=== PATIENT | female | born 1940 | race Caucasian/White ===

== ENCOUNTER 2017-03-29 01:51 | Emergency (ER) | payer MEDICARE, BC ==
[2017-03-29] MEDS ORDERED: ATARAX 25 MG PO ONE (02:06)
[2017-03-29] MEDS ORDERED: ATARAX 25 MG ONE (02:13)
[2017-03-29 02:18] LABS: BASOPHIL % 0.2 % (0.0-0.4); Eosinophil % 4.5 % (0.00-5.0); Granulocytes % 54.3 % (36.0-66.0); Lymphocytes % 30.4 % (24.0-44.0); Mean Cell Volume 88.9 fl (78-100); Mean Platelet Volume 10.3 fl (6-9.5); Monocytes % 10.6 % (0.0-12.0); Platelet Count 167 K/mm3 (150-450); Red Blood Count 3.86 M/mm3 (4.1-5.4); Red Cell Distribution Width 13.4 % (11.5-14.0); White Blood Count 6.4 K/mm3 (4.0-10.5)
--- NOTE | 2017-03-29 02:20 | ERPHSYRPT ---
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 She went to bed around 9PM. Was unable to rest well. Around 10PM she had headache and tingling in her face. Still unable to rest. No other weakness. No N/V. Her BP was elevated so she came to ER. No chest or abd pain. No hx of stroke. Timing/Duration: today Severity: mild Allergies/Adverse Reactions: cefaclor [From Ceclor] Allergy (Mild, Verified 03/29/17 02:17) Rash cephalexin monohydrate [From Keflex] Allergy (Mild, Verified 03/29/17 02:17) Rash fenoprofen calcium [From Nalfon] Allergy (Unknown, Verified 03/29/17 02:17) butorphanol tartrate [From Stadol] Adverse Reaction (Intermediate, Verified 02:17) Nausea and Vomiting hydromorphone HCl [From Dilaudid] Adverse Reaction (Intermediate, Verified 03/29 02:17) states make her very sleepy and "out of it for 3 days" Home Medications: Aspirin EC 81 mg [Ecotrin 81 mg] 81 mg PO DAILY 02/08/13 [History] Carvedilol [Coreg] 25 mg PO BID 02/08/13 [History] Losartan Potassium 100 mg PO DAILY 02/08/13 [History] Triamterene/Hydrochlorothiazid [Triamterene-Hctz 37.5-25 mg Tb] 37.5 each PO DAILY 02/08/13 [History] Multivit with Minerals/Lutein [Vision Plus Lutein Vitamin Tab] 1 ea PO DAILY [History] Dudley-3 Fatty Acids/Fish Oil [Cvs Fish Oil 1,200 mg Softgel] 1,000 mg PO DAILY 06/23/16 [History] Omeprazole Magnesium [Prilosec Otc] 20 mg PO DAILY 06/23/16 [History] Furosemide 40 mg [Lasix 40 MG] 40 mg PO DAILY 03/29/17 [History] Hydralazine HCl 10 mg PO TID 03/29/17 [History] Potassium Chloride 10 Meq Tab* [Klor Con 10 MEQ] 10 meq PO DAILY 03/29/17 [ History] Simvastatin 20Mg [Zocor 20Mg] 20 mg PO DAILY 03/29/17 [History] Hx Tetanus, Diphtheria Vaccination/Date Given: No Hx Influenza Vaccination/Date Given: Yes (2015) Hx Pneumococcal Vaccination/Date Given: Yes (2014) Immunizations Up to Date: Yes - Review of Systems Constitutional: No Fever, No Chills Eyes: No Vision Changes Ears, Nose, & Throat: No Symptoms Respiratory: No Symptoms Cardiac: No Chest Pain Abdominal/Gastrointestinal: No Abdominal Pain, No Nausea, No Vomiting Musculoskeletal: No Back Pain, No Neck Pain Skin: No Rash Neurological: Headache, Parasthesia (facial bilateral), No Focal Weakness All Other Systems: Reviewed and Negative - Past Medical History Pertinent Past Medical History: Yes Neurological History: No Pertinent History ENT History: No Pertinent History Cardiac History: Hypertension Respiratory History: Other Endocrine Medical History: Adrenal Insufficiency, Other Musculoskeletal History: Osteoarthritis GI Medical History: Polyps, Other History: Renal Disease Psycho-Social History: No Pertinent History Female Reproductive Disorders: Abnormal Uterine Bleeding Other Medical History: Growth on thyroid, at one time used a Cpap. - Past Surgical History Past Surgical History: Yes Neuro Surgical History: No Pertinent History Cardiac: Cardiac Catheterization Respiratory: No Pertinent History Gastrointestinal: Appendectomy, Cholecystectomy, Colon Resection Genitourinary: No Pertinent History Musculoskeletal: Orthopedic Surgery Female Surgical History: Hysterectomy Other Surgical History: breast biopsy-no cancer - Social History Smoking Status: Former smoker Exposure to second hand smoke: No Drug Use: none Patient Lives Alone: No - Nursing Vital Signs Nursing Vital Signs: Initial Vital Signs Pulse Rate 61 03/29/17 02:08 Respiratory Rate 18 03/29/17 02:08 Blood Pressure 162/69 03/29/17 02:08 O2 Sat by Pulse Oximetry 97 03/29/17 02:08 Pain Scale Pain Intensity 1 - Physical Exam General Appearance: alert Eye Exam: PERRL/EOMI Ears, Nose, Throat Exam: normal ENT inspection, moist mucous membranes Neck Exam: normal inspection, non-tender, supple Respiratory Exam: normal breath sounds, lungs clear Cardiovascular Exam: regular rate/rhythm Gastrointestinal/Abdomen Exam: soft, No tenderness, No distention Back Exam: normal inspection, normal range of motion Extremity Exam: normal inspection, normal range of motion Neurologic Exam: alert, oriented x 3, cooperative, 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 as tested (no facial droop), sensation nml, No motor deficits Skin Exam: warm, dry, No rash SpO2 Interpretation: normal SpO2: 97 Oxygen Delivery: Room Air - Course Nursing assessment & vital signs reviewed: Yes EKG Interpreted by Me: RATE (60), Sinus Rhythm, NORMAL AXIS, NORMAL INTERVALS ( QTc 416), NORMAL QRS (poor R wave progression), NORMAL ST-T - Radiology Exams cxr X-ray Interpretation: Reviewed by me, Negative - CT Exams brain CT Interpretation: Negative, Tele-radiologist Report Ordered Tests: Active Orders 24 hr Category Date Time Status Dice Maker STAT Care 03/29/17 02:03 Active EKG-ER Only STAT Care 03/29/17 02:03 Active IV Insertion STAT Care 03/29/17 02:03 Active NPO (ED) STAT Care 03/29/17 02:03 Active Pulse Oximetry (ED) STAT Care 03/29/17 02:03 Active CHEST 1 VIEW (PORTABLE) Stat Exams 03/29/17 02:03 Taken HEAD WITHOUT CONTRAST [CT] Stat Exams 03/29/17 02:03 Taken CBC W DIFF Stat Lab 03/29/17 02:05 Completed CMP Stat Lab 03/29/17 02:05 Completed PROTIME WITH INR Stat Lab 03/29/17 02:05 Completed PTT Stat Lab 03/29/17 02:05 Completed Medication Summary Discontinued Medications Generic Name Dose Route Start Last Admin Trade Name Freq PRN Reason Stop Dose Admin Hydroxyzine HCl 25 mg 03/29/17 02:06 03/29/17 02:17 Atarax 25 Mg PO 03/29/17 02:07 25 mg STAT ONE Administration Hydroxyzine HCl Confirm 03/29/17 02:13 Atarax 25 Mg Administered 03/29/17 02:14 Dose 25 mg .ROUTE .STneoSurgical-FanGo ONE Lab/Rad Data: Laboratory Result Diagrams 03/29/17 02:05 03/29/17 02:05 Laboratory Results 03/29/17 03/29/17 03/29/17 Range/Units 02:05 02:05 02:05 WBC 6.4 (4.0-10.5) K/mm3 RBC 3.86 L (4.1-5.4) M/mm3 Hgb 11.3 L (12.0-16.0) gm/dl Hct 34.3 L (35-47) % MCV 88.9 (78-100) fl MCH 29.2 (26-32) pg MCHC 32.9 (32-36) g/dl RDW 13.4 (11.5-14.0) % Plt Count 167 (150-450) K/mm3 MPV 10.3 H (6-9.5) fl Gran % 54.3 (36.0-66.0) % Lymphocytes % 30.4 (24.0-44.0) % Monocytes % 10.6 (0.0-12.0) % Eosinophils % 4.5 (0.00-5.0) % Basophils % 0.2 (0.0-0.4) % Basophils # 0.01 (0-0.4) INR 1.00 (0.8-3.0) APTT 29.9 (25.3-37.0) SECONDS Sodium 135 L (136-145) mEq/L Potassium 4.0 (3.5-5.1) mEq/L Chloride 98 (98-107) mEq/L Carbon Dioxide 28.1 (21-32) mEq/L Anion Gap 12.8 (5-15) MEQ/L BUN 19 (9-20) mg/dL Creatinine 1.76 H (0.55-1.30) mg/dl Estimated GFR 30 ML/MIN Glucose 112 H (70-110) MG/DL Calcium 9.4 (8.5-10.1) mg/dL Total Bilirubin 0.70 (0.2-1.0) mg/dL AST 21 (15-37) U/L ALT 22 (12-78) U/L Alkaline Phosphatase 75 (46-116) U/L Serum Total Protein 6.9 (6.4-8.2) gm/dL Albumin 3.7 (3.4-5.0) g/dL - Progress Progress Note: 09/18/17 03:45 BP 153/78. Symptoms better. Still some headache which she reports is not unusual. She sees Dr Love/Harini/Joshua. NIH negative. Normal swallow eval. Will release to follow up with dr Love. Counseled pt/family regarding: lab results, diagnosis, need for follow-up, rad results - Departure Time of Disposition: 03:46 Departure Disposition: Home Clinical Impression: High blood pressure, Headache Condition: Stable Critical Care Time: No Referrals: VICENTE LOVE MD [Primary Care Provider] - Instructions: Numbness/tingling, High Blood Pressure Additional Instructions: No driving and stay with family. Return for problems or concerns. Take your normal medications. Call Dr Love tomorrow for recheck.
[2017-03-29 02:28] LABS: Mean Corpuscular Hemoglobin 29.2 pg (26-32)
[2017-03-29 02:29] LABS: PROTIME 11.1 SECONDS (9.95-12.35)
[2017-03-29 02:32] LABS: PTT 29.9 SECONDS (25.3-37.0)
[2017-03-29 02:38] LABS: ALBUMIN 3.7 g/dL (3.4-5.0); ANION GAP 12.8 MEQ/L (5-15); BILIRUBIN,TOTAL 0.7 mg/dL (0.2-1.0); Carbon Dioxide 28.1 mEq/L (21-32); Total Protein 6.9 gm/dL (6.4-8.2)
[2017-03-29] MEDS ORDERED: TYLENOL 325 MG PO ONE (03:47)
[2017-03-29] MEDS ORDERED: TYLENOL 325 MG ONE (03:53)
[2017-03-29 04:00] VITALS: BP 141/64; PULSE 70; O2SAT 95
--- NOTE | 2017-03-29 08:54 | XRAY ---
Indication: Headache and bilateral facial tingling. Multiple contiguous axial images obtained through the head without contrast. Comparison: None. Normal appearing brain parenchyma, ventricles, and bony calvarium. Visualized paranasal sinuses and mastoid air cells are clear. Impression: Normal CT head without contrast exam. Comment: Preliminary interpretation was made by [facility]. No discrepancy. CT DI 68.51
--- NOTE | 2017-03-29 08:54 | XRAY ---
Indication: Headache and bilateral facial tingling. Comparison: November 18, 2014. Portable chest again demonstrates lingular atelectasis/scarring and a few scattered calcified granulomas. Remaining lungs clear. Heart is not enlarged. Bony thorax intact again with mild osteopenia and degenerative changes. Impression: Stable nonacute chest with chronic features.
== END 2017-03-29 03:59 | disposition home or self-care (01) ==
LOC: ED 01:51
DX: I10 Essential (primary) hypertension (principal); R51 Headache; Z79.899 Other long term (current) drug therapy
CPT/HCPCS: 36000; 36415; 70450; 71010; 80053; 85025; 85610; 85730; 93005; 93041; 99284; 99285; A9270-GY

== ENCOUNTER 2017-04-04 14:54 | Emergency (ER) | payer MEDICARE, BC ==
[2017-04-04] MEDS ORDERED: Sodium Chloride 0.9% 1000 ML 1,000 ML IV STA (15:43)
[2017-04-04] MEDS ORDERED: Sodium Chloride 0.9% 1000 ML 1,000 ML ONE (15:54)
[2017-04-04 15:58] LABS: ALBUMIN 3.7 g/dL (3.4-5.0); ANION GAP 10.7 MEQ/L (5-15); BILIRUBIN,TOTAL 0.5 mg/dL (0.2-1.0); Carbon Dioxide 30.8 mEq/L (21-32); MAGNESIUM 1.4 mg/dL (1.8-2.4); Potassium 4.1 mEq/L (3.5-5.1); Total Protein 6.9 gm/dL (6.4-8.2)
[2017-04-04 16:04] LABS: BASOPHIL % 0.1 % (0.0-0.4); Eosinophil % 4.8 % (0.00-5.0); Granulocytes % 61.1 % (36.0-66.0); Lymphocytes % 23.9 % (24.0-44.0); Mean Cell Volume 86.5 fl (78-100); Mean Corpuscular Hemoglobin 29.5 pg (26-32); Mean Platelet Volume 9.8 fl (6-9.5); Monocytes % 10.1 % (0.0-12.0); Platelet Count 176 K/mm3 (150-450); Red Cell Distribution Width 13.2 % (11.5-14.0); White Blood Count 6.7 K/mm3 (4.0-10.5)
--- NOTE | 2017-04-04 16:35 | ERPHSYRPT ---
- History of Present Illness Time Seen by Provider: 04/04/17 16:29 Source: patient, family Patient Subjective Stated Complaint: Pt states "I was here on wednesday and they let me go saying everything was ok. I am feeling funny and weak. I am not sure why I feel weak. They have been playing around with my blood pressure meds and my water pills so that might have something to do with it." Triage Nursing Assessment: PT alert and oriented X 3, skin pwd. 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 Physician History: Pt states "I was here on wednesday and they let me go saying everything was ok. I am feeling funny and weak. I am not sure why I feel weak. They have been playing around with my blood pressure meds and my water pills so that might have something to do with it." Timing/Duration: week(s) Associated Symptoms: weakness Allergies/Adverse Reactions: cefaclor [From Ceclor] Allergy (Mild, Verified 03/29/17 02:17) Rash cephalexin monohydrate [From Keflex] Allergy (Mild, Verified 03/29/17 02:17) Rash fenoprofen calcium [From Nalfon] Allergy (Unknown, Verified 03/29/17 02:17) butorphanol tartrate [From Stadol] Adverse Reaction (Intermediate, Verified 02:17) Nausea and Vomiting hydromorphone HCl [From Dilaudid] Adverse Reaction (Intermediate, Verified 03/29 02:17) states make her very sleepy and "out of it for 3 days" Home Medications: Aspirin EC 81 mg [Ecotrin 81 mg] 81 mg PO DAILY 02/08/13 [History] Carvedilol [Coreg] 25 mg PO BID 02/08/13 [History] Losartan Potassium 100 mg PO DAILY 02/08/13 [History] Triamterene/Hydrochlorothiazid [Triamterene-Hctz 37.5-25 mg Tb] 37.5 each PO DAILY 02/08/13 [History] Multivit with Minerals/Lutein [Vision Plus Lutein Vitamin Tab] 1 ea PO DAILY [History] Kramer-3 Fatty Acids/Fish Oil [Cvs Fish Oil 1,200 mg Softgel] 1,000 mg PO DAILY 06/23/16 [History] Omeprazole Magnesium [Prilosec Otc] 20 mg PO DAILY 06/23/16 [History] Furosemide 40 mg [Lasix 40 MG] 40 mg PO DAILY 03/29/17 [History] Hydralazine HCl 10 mg PO TID 03/29/17 [History] Potassium Chloride 10 Meq Tab* [Klor Con 10 MEQ] 10 meq PO DAILY 03/29/17 [ History] Simvastatin 20Mg [Zocor 20Mg] 20 mg PO DAILY 03/29/17 [History] Hx Tetanus, Diphtheria Vaccination/Date Given: Yes Hx Influenza Vaccination/Date Given: Yes Hx Pneumococcal Vaccination/Date Given: Yes Immunizations Up to Date: Yes - Review of Systems Constitutional: Weakness, No Fever, No Chills Eyes: No Symptoms Ears, Nose, & Throat: No Symptoms Respiratory: No Cough, No Dyspnea Cardiac: No Chest Pain, No Edema, No Syncope Abdominal/Gastrointestinal: No Abdominal Pain, No Nausea, No Vomiting, No Diarrhea Genitourinary Symptoms: No Dysuria Musculoskeletal: No Back Pain, No Neck Pain Skin: No Rash Neurological: No Dizziness, No Focal Weakness, No Sensory Changes Psychological: No Symptoms Endocrine: No Symptoms All Other Systems: Reviewed and Negative - Past Medical History Pertinent Past Medical History: Yes Neurological History: No Pertinent History ENT History: No Pertinent History Cardiac History: Hypertension Respiratory History: Other Endocrine Medical History: Adrenal Insufficiency, Other Musculoskeletal History: Osteoarthritis GI Medical History: Polyps, Other History: Renal Disease Psycho-Social History: No Pertinent History Female Reproductive Disorders: Abnormal Uterine Bleeding Other Medical History: Growth on thyroid, at one time used a Cpap. - Past Surgical History Past Surgical History: Yes Neuro Surgical History: No Pertinent History Cardiac: Cardiac Catheterization Respiratory: No Pertinent History Gastrointestinal: Appendectomy, Cholecystectomy, Colon Resection Genitourinary: No Pertinent History Musculoskeletal: Orthopedic Surgery Female Surgical History: Hysterectomy Other Surgical History: breast biopsy-no cancer - Social History Smoking Status: Former smoker Exposure to second hand smoke: No Drug Use: none Patient Lives Alone: No - Female History Hx Last Menstrual Period: no more - Nursing Vital Signs Nursing Vital Signs: Initial Vital Signs Temperature 97.6 F 04/04/17 14:55 Pulse Rate 68 04/04/17 14:55 Respiratory Rate 18 04/04/17 14:55 Blood Pressure 176/78 04/04/17 14:55 O2 Sat by Pulse Oximetry 95 04/04/17 14:55 Pain Scale Pain Intensity 0 - Physical Exam General Appearance: no apparent distress, alert Eye Exam: PERRL/EOMI, eyes nml inspection Ears, Nose, Throat Exam: normal ENT inspection, TMs normal, pharynx normal, moist mucous membranes Neck Exam: normal inspection, non-tender, supple, full range of motion Respiratory Exam: normal breath sounds, lungs clear, No respiratory distress Cardiovascular Exam: regular rate/rhythm, normal heart sounds, normal peripheral pulses Gastrointestinal/Abdomen Exam: soft, normal bowel sounds, No tenderness, No mass Back Exam: normal inspection, normal range of motion, No CVA tenderness, No vertebral tenderness Extremity Exam: normal inspection, normal range of motion, pelvis stable Neurologic Exam: alert, oriented x 3, cooperative, normal mood/affect, nml cerebellar function, nml station & gait, sensation nml, No motor deficits Skin Exam: normal color, warm, dry, No rash Lymphatic Exam: No adenopathy SpO2: 95 Oxygen Delivery: Room Air - Course Nursing assessment & vital signs reviewed: Yes Ordered Tests: Active Orders 24 hr Category Date Time Status CBC W DIFF Stat Lab 04/04/17 15:00 Completed CMP Stat Lab 04/04/17 15:00 Completed MAGNESIUM Stat Lab 04/04/17 15:00 Completed TROPONIN Stat Lab 04/04/17 15:00 Completed Medication Summary Generic Name Dose Route Start Last Admin Trade Name Freq PRN Reason Stop Dose Admin Sodium Chloride 1,000 mls @ 999 mls/hr 04/04/17 15:43 04/04/17 15:55 Sodium Chloride 0.9% 1000 Ml IV 04/04/17 16:43 999 mls/hr .[id number] STA Administration Discontinued Medications Generic Name Dose Route Start Last Admin Trade Name Freq PRN Reason Stop Dose Admin Sodium Chloride Confirm 04/04/17 15:54 Sodium Chloride 0.9% 1000 Ml Administered 04/04/17 15:55 Dose 1,000 mls @ ud .ROUTE .STK-MED ONE Lab/Rad Data: Laboratory Result Diagrams 04/04/17 15:00 04/04/17 15:00 Laboratory Results 04/04/17 04/04/17 04/04/17 Range/Units 15:00 15:00 15:00 WBC 6.7 (4.0-10.5) K/mm3 RBC 4.00 L (4.1-5.4) M/mm3 Hgb 11.8 L (12.0-16.0) gm/dl Hct 34.6 L (35-47) % MCV 86.5 (78-100) fl MCH 29.5 (26-32) pg MCHC 34.1 (32-36) g/dl RDW 13.2 (11.5-14.0) % Plt Count 176 (150-450) K/mm3 MPV 9.8 H (6-9.5) fl Gran % 61.1 (36.0-66.0) % Lymphocytes % 23.9 L (24.0-44.0) % Monocytes % 10.1 (0.0-12.0) % Eosinophils % 4.8 (0.00-5.0) % Basophils % 0.1 (0.0-0.4) % Basophils # 0.01 (0-0.4) Sodium 133 L (136-145) mEq/L Potassium 4.1 (3.5-5.1) mEq/L Chloride 96 L (98-107) mEq/L Carbon Dioxide 30.8 (21-32) mEq/L Anion Gap 10.7 (5-15) MEQ/L BUN 24 H (9-20) mg/dL Creatinine 1.83 H (0.55-1.30) mg/dl Estimated GFR 28 ML/MIN Glucose 123 H (70-110) MG/DL Calcium 9.8 (8.5-10.1) mg/dL Magnesium 1.4 L (1.8-2.4) mg/dL Total Bilirubin 0.50 (0.2-1.0) mg/dL AST 25 (15-37) U/L ALT 29 (12-78) U/L Alkaline Phosphatase 79 (46-116) U/L Troponin I < 0.017 (0.000-0.056) ng/ml Serum Total Protein 6.9 (6.4-8.2) gm/dL Albumin 3.7 (3.4-5.0) g/dL - Progress Progress: improved Counseled pt/family regarding: lab results, diagnosis, need for follow-up - Departure Time of Disposition: 16:34 Departure Disposition: Home Clinical Impression: Weakness generalized, Chronic kidney disease (CKD) stage G4/A1, severely decreased glomerular filtration rate (GFR) between 15-29 mL/min/1.73 square meter and albuminuria creatinine ratio less than 30 mg/g Condition: Stable Critical Care Time: Yes Critical Care Time(excluding separately billable procedures): 30-74 minutes Referrals: VICENTE LOVE MD [Primary Care Provider] - Additional Instructions: Ms. Becker. Your symptoms are originating from due to changing some of your heart and kidney medications, although you do require those medications, so please talk to your linux server engineer and technical adjuster for further adjustment in your medication. What you are feeling of the side effects of those medications. Please do not stop any of those medication before talking to your linux server engineer and technical adjuster. Make an appointment with your technical adjuster in next 2-3 days.
[2017-04-04] MEDS ORDERED: MAG-OX 400 ONE (16:38)
[2017-04-04 16:46] VITALS: BP 121/60; PULSE 68; O2SAT 97
[2017-04-05] MEDS ORDERED: MAG-OX 400 PO ONE (16:36)
== END 2017-04-04 16:56 | disposition home or self-care (01) ==
LOC: ED 14:54
DX: R53.1 Weakness (principal); N18.4 Chronic kidney disease, stage 4 (severe); R94.4 Abnormal results of kidney function studies; R80.9 Proteinuria, unspecified; Z79.899 Other long term (current) drug therapy; I10 Essential (primary) hypertension
CPT/HCPCS: 36415; 80053; 83735; 84484; 85025; 96360; 99284; A9270-GY

== ENCOUNTER 2017-08-05 05:47 | Day surgery (SDC) | payer MEDICARE, BC ==
[2017-08-05] MEDS ORDERED: DIPRIVAN 200 MG/20 ML IV ONE (05:48)
[2017-08-05] MEDS ORDERED: Ketamine HCl 50 MG/ML IV ONE (05:48)
[2017-08-05] MEDS ORDERED: Lactated Ringers 1,000 ML IV SCH (06:30)
--- NOTE | 2017-08-05 08:50 | OP ---
SURGERY DATE/TIME: 08/05/2017 0800 PREOPERATIVE DIAGNOSES: 1) Persistent gastroesophageal reflux disease 2) Dysphagia. POSTOPERATIVE DIAGNOSIS: Normal exam. PROCEDURE: EGD. SURGEON: Ha Monterroso M.D. ANESTHESIA: MAC by Xavier Da Silva CRNA. ESTIMATED BLOOD LOSS: None. SPECIMENS: None. DESCRIPTION OF PROCEDURE: After informed written consent was obtained, the patient was taken to the endoscopy suite. She underwent monitored anesthesia and a bite block was inserted. The endoscope was inserted into the posterior oropharynx and under direct visualization the esophagus was easily traversed. The esophageal mucosa had no obvious mucosal abnormalities. The gastroesophageal junction appeared normal upon entering the stomach. There was normal rugated gastric mucosa free of lesions or defects. The pylorus was traversed and the first and second portions of the duodenum had a normal mucosal appearance. Upon withdrawal all mucosal structures had no obvious abnormalities or concerning lesions. The scope was removed and the patient was transferred to the recovery room in good condition.
[2017-08-05 09:08] VITALS: O2SAT 98
[2017-08-05 09:46] VITALS: BP 141/68; PULSE 62
== END 2017-08-05 09:25 | disposition home or self-care (01) ==
LOC: SDC 05:47
PROVIDERS: ATTEND Family Medicine
PROC: 0DJ08ZZ Inspection of Upper Intestinal Tract, Via Natural or Artificial Opening Endoscopic (ICD-10-PCS; principal; 2017-08-05)
DX: K21.9 Gastro-esophageal reflux disease without esophagitis (principal); R13.10 Dysphagia, unspecified
CPT/HCPCS: 00731; 99100; J2704

== ENCOUNTER 2019-05-16 13:36 | Emergency (ER) | payer MEDICARE, BC ==
--- NOTE | 2019-05-16 13:41 | ERPHSYRPT ---
- History of Present Illness Time Seen by Provider: 05/16/19 13:40 Historian: patient Exam Limitations: no limitations Physician History: 78 y/o white female with h/o chf, afib, htn, chronic kidney dz and copd at home receiving physical therapy when she suddenly began having nonradiating, mild central substernal chest pressure and fluttering. pt does have retirement manager, dr. schuler. pt denies mi in the past. pt does not have soa and denies abd pain. Timing/Duration: today, sudden Quality: pressure, other (fluttering) Location: substernal, central Chest Pain Radiation: no radiation Severity of Pain-Max: mild Severity of Pain-Current: mild Associated Symptoms: palpitations Prior Chest Pain/Cardiac Workup: no prior chest pain, cardiac cath (in past) Aspirin Treatment Today: 81 mg x 1, provided at home Allergies/Adverse Reactions: cefaclor [From Ceclor] Allergy (Mild, Verified 05/16/19 13:56) Rash cephalexin monohydrate [From Keflex] Allergy (Mild, Verified 05/16/19 13:56) Rash fenoprofen calcium [From Nalfon] Allergy (Unknown, Verified 05/16/19 13:56) butorphanol tartrate [From Stadol] Adverse Reaction (Intermediate, Verified 11/27 13:56) Nausea and Vomiting hydromorphone HCl [From Dilaudid] Adverse Reaction (Intermediate, Verified 05/16 13:56) states make her very sleepy and "out of it for 3 days" Home Medications: Aspirin EC 81 mg [Ecotrin 81 mg] 81 mg PO DAILY 02/08/13 [History] Carvedilol [Coreg] 25 mg PO BID 02/08/13 [History] Losartan Potassium 100 mg PO DAILY 02/08/13 [History] Beaman-3 Fatty Acids/Fish Oil [[facility]vs Fish Oil 1,200 mg Softgel] 1,000 mg PO BID [History] Omeprazole Magnesium [Prilosec Otc] 40 mg PO DAILY 06/23/16 [History] Furosemide 40 mg [Lasix 40 MG] 40 mg PO DAILY 03/29/17 [History] Hydralazine HCl 50 mg PO TID 03/29/17 [History] Potassium Chloride 10 Meq Tab* [Klor Con 10 MEQ] 10 meq PO BID 03/29/17 [ History] Simvastatin 20Mg [Zocor 20Mg] 20 mg PO DAILY 03/29/17 [History] Multivitamin with Minerals [One Daily Complete] 1 tab PO DAILY 07/27/17 [History ] Famotidine 20 mg PO DAILY 05/16/19 [History] Indapamide 1.25 mg PO DAILY 05/16/19 [History] Oxycodone HCl/Acetaminophen [Percocet 5-325 mg Tablet] 1 tab PO DAILY PRN [History] Sertraline HCl [Zoloft] 25 mg PO DAILY 05/16/19 [History] Hx Tetanus, Diphtheria Vaccination/Date Given: Yes Hx Influenza Vaccination/Date Given: Yes Hx Pneumococcal Vaccination/Date Given: Yes - Review of Systems Constitutional: No Symptoms Eyes: No Symptoms Ears, Nose, & Throat: No Symptoms Respiratory: No Symptoms Cardiac: Chest Pain, Palpitations Abdominal/Gastrointestinal: No Symptoms Genitourinary Symptoms: No Symptoms Musculoskeletal: No Symptoms Skin: No Symptoms Neurological: No Symptoms Psychological: No Symptoms Endocrine: No Symptoms Hematologic/Lymphatic: No Symptoms Immunological/Allergic: No Symptoms All Other Systems: Reviewed and Negative - Past Medical History Pertinent Past Medical History: Yes Neurological History: No Pertinent History ENT History: No Pertinent History, Cataracts Cardiac History: Congestive Heart Failure, High Cholesterol, Hypertension Respiratory History: COPD, Other Endocrine Medical History: Other Musculoskeletal History: Arthritis, Osteoarthritis GI Medical History: GERD, Polyps, Other History: Renal Disease Psycho-Social History: No Pertinent History Female Reproductive Disorders: Abnormal Uterine Bleeding Other Medical History: Growth on thyroid, at one time used a Cpap, hx sleep apnea, history of hysterectomy for abnormal uterine bleeding years ago, - Past Surgical History Past Surgical History: Yes Neuro Surgical History: No Pertinent History Cardiac: Cardiac Catheterization Respiratory: No Pertinent History Gastrointestinal: Appendectomy, Cholecystectomy, Colon Resection Genitourinary: No Pertinent History Musculoskeletal: Joint Replacement, Orthopedic Surgery Female Surgical History: Hysterectomy, Other Other Surgical History: right total knee replacement, lower back surgery, left elbow surgery, colon resection-no cancer. breast biopsy-no cancer, egd - Social History Smoking Status: Former smoker Exposure to second hand smoke: No Drug Use: none Patient Lives Alone: No - Nursing Vital Signs Nursing Vital Signs: Initial Vital Signs Temperature 98.0 F 05/16/19 13:37 Pulse Rate 109 H 05/16/19 13:37 Respiratory Rate 10 L 05/16/19 13:37 Blood Pressure 185/70 05/16/19 13:37 O2 Sat by Pulse Oximetry 98 05/16/19 13:37 Pain Scale Pain Intensity 4 - Physical Exam General Appearance: mild distress, alert, anxiety Eye Exam: PERRL/EOMI, eyes nml inspection Ears, Nose, Throat Exam: normal ENT inspection, moist mucous membranes Neck Exam: normal inspection, non-tender, supple, full range of motion Respiratory Exam: normal breath sounds, chest tenderness, lungs clear, airway intact, No respiratory distress Cardiovascular Exam: tachycardia, irregular Gastrointestinal/Abdomen Exam: soft, normal bowel sounds, No tenderness Pelvic Exam: not done Rectal Exam: not done Back Exam: normal inspection, normal range of motion, No CVA tenderness, No vertebral tenderness Extremity Exam: normal inspection, normal range of motion, pelvis stable Neurologic Exam: alert, oriented x 3, cooperative, normal mood/affect, nml cerebellar function, nml station & gait Skin Exam: normal color, warm, dry Lymphatic Exam: No adenopathy O2 Delivery: Room Air - Course Nursing assessment & vital signs reviewed: Yes EKG Interpreted by Me: RATE (108), A-fib, NORMAL AXIS, NORMAL INTERVALS, Other ( new onset afib/flutter when comparing to ekg dated 03/29/17) Ordered Tests: Active Orders 24 hr Category Date Time Status Sterilization Specialist STAT Care 05/16/19 13:54 Active EKG-ER Only STAT Care 05/16/19 13:53 Active IV Insertion STAT Care 05/16/19 13:53 Active Pulse Oximetry (ED) STAT Care 05/16/19 13:53 Active CHEST 1 VIEW (PORTABLE) Stat Exams 05/16/19 13:54 Completed CBC W DIFF Stat Lab 05/16/19 14:00 Completed CMP Stat Lab 05/16/19 14:00 Completed NT PRO BNP Stat Lab 05/16/19 14:00 Completed TROPONIN Q3H Lab 05/16/19 14:00 Completed TROPONIN Q3H Lab 05/16/19 17:02 Completed TROPONIN Q3H Lab 05/16/19 20:00 Ordered TROPONIN Q3H Lab 05/16/19 23:00 Ordered TROPONIN Q3H Lab 05/17/19 02:00 Ordered Medication Summary Discontinued Medications Generic Name Dose Route Start Last Admin Trade Name Hussein PRLeslie Reason Stop Dose Admin Aspirin 324 mg 05/16/19 13:53 05/16/19 14:08 Baby Aspirin 81 Mg Chew PO 05/16/19 13:54 324 mg STAT ONE Administration Aspirin Confirm 05/16/19 14:07 Baby Aspirin 81 Mg Chew Administered 05/16/19 14:08 Dose 324 mg .ROUTE .STK-MED ONE Metoprolol Tartrate 5 mg 05/16/19 13:55 05/16/19 14:07 Lopressor 5 Mg/5 Ml Injection IV 05/16/19 13:56 5 mg STAT ONE Administration Metoprolol Tartrate Confirm 05/16/19 14:07 Lopressor 5 Mg/5 Ml Injection Administered 05/16/19 14:08 Dose 5 mg IV .STK-MED ONE Metoprolol Tartrate 5 mg 05/16/19 16:52 05/16/19 16:56 Lopressor 5 Mg/5 Ml Injection IV 05/16/19 16:53 5 mg STAT ONE Administration Metoprolol Tartrate Confirm 05/16/19 16:55 Lopressor 5 Mg/5 Ml Injection Administered 05/16/19 16:56 Dose 5 mg IV .STK-MED ONE Morphine Sulfate 2 mg 05/16/19 17:25 05/16/19 17:30 Morphine Sulfate 2 Mg Inj IV 05/16/19 17:26 2 mg STAT ONE Administration Morphine Sulfate Confirm 05/16/19 17:27 Morphine Sulfate 2 Mg Inj Administered 05/16/19 17:28 Dose 2 mg .ROUTE .STK-MED ONE Lab/Rad Data: Laboratory Result Diagrams 05/16/19 14:00 05/16/19 14:00 Laboratory Results 05/16/19 05/16/19 05/16/19 Range/Units 17:02 14:00 14:00 WBC (4.0-10.5) K/mm3 RBC (4.1-5.4) M/mm3 Hgb (12.0-16.0) gm/dl Hct (35-47) % MCV (78-100) fl MCH (26-32) pg MCHC (32-36) g/dl RDW (11.5-14.0) % Plt Count (150-450) K/mm3 MPV (6-9.5) fl Gran % (36.0-66.0) % Eos # (Auto) (0-0.5) Absolute Lymphs (auto) (1.0-4.6) Absolute Monos (auto) (0.0-1.3) Lymphocytes % (24.0-44.0) % Monocytes % (0.0-12.0) % Eosinophils % (0.00-5.0) % Basophils % (0.0-0.4) % Absolute Granulocytes (1.4-6.9) Basophils # (0-0.4) Sodium 140 (137-145) mmol/L Potassium 3.8 (3.5-5.1) mmol/L Chloride 96 L (98-107) mmol/L Carbon Dioxide 34 H (22-30) mmol/L Anion Gap 13.2 (5-15) MEQ/L BUN 27 H (7-17) mg/dL Creatinine 2.08 H (0.52-1.04) mg/dL Estimated GFR 24.4 ML/MIN Glucose 108 H (74-106) mg/dL Calcium 10.1 (8.4-10.2) mg/dL Total Bilirubin 0.50 (0.2-1.3) mg/dL AST 27 (14-36) U/L ALT 19 (0-35) U/L Alkaline Phosphatase 62 (38-126) U/L Troponin I < 0.012 < 0.012 (0.000-0.034) ng/mL NT-Pro-B Natriuret Pep 365 (0-1800) pg/mL Serum Total Protein 7.5 (6.3-8.2) g/dL Albumin 4.2 (3.5-5.0) g/dL 05/16/19 Range/Units 14:00 WBC 7.9 (4.0-10.5) K/mm3 RBC 3.63 L (4.1-5.4) M/mm3 Hgb 11.0 L (12.0-16.0) gm/dl Hct 33.9 L (35-47) % MCV 93.4 (78-100) fl MCH 30.3 (26-32) pg MCHC 32.4 (32-36) g/dl RDW 14.3 H (11.5-14.0) % Plt Count 165 (150-450) K/mm3 MPV 10.3 H (6-9.5) fl Gran % 55.0 (36.0-66.0) % Eos # (Auto) 0.31 (0-0.5) Absolute Lymphs (auto) 2.44 (1.0-4.6) Absolute Monos (auto) 0.81 (0.0-1.3) Lymphocytes % 30.8 (24.0-44.0) % Monocytes % 10.2 (0.0-12.0) % Eosinophils % 3.9 (0.00-5.0) % Basophils % 0.1 (0.0-0.4) % Absolute Granulocytes 4.34 (1.4-6.9) Basophils # 0.01 (0-0.4) Sodium (137-145) mmol/L Potassium (3.5-5.1) mmol/L Chloride (98-107) mmol/L Carbon Dioxide (22-30) mmol/L Anion Gap (5-15) MEQ/L BUN (7-17) mg/dL Creatinine (0.52-1.04) mg/dL Estimated GFR ML/MIN Glucose (74-106) mg/dL Calcium (8.4-10.2) mg/dL Total Bilirubin (0.2-1.3) mg/dL AST (14-36) U/L ALT (0-35) U/L Alkaline Phosphatase (38-126) U/L Troponin I (0.000-0.034) ng/mL NT-Pro-B Natriuret Pep (0-1800) pg/mL Serum Total Protein (6.3-8.2) g/dL Albumin (3.5-5.0) g/dL - Progress Progress: improved Air Movement: good Progress Note: 05/16/19 18:25 cxr-no acute process. pt with persistent cp. spoke with dr. Schuler, pts retirement manager. he agrees pt should be transferred. the operations trainer retirement manager for the group will admit. pt [facility] transfer to [facility]. transfer center there was called, pt meets automatic acceptance protocol. they accept pt for transfer. Blood Culture(s) Obtained: No Antibiotics given: No Discussed with : Other (alverto) Counseled pt/family regarding: lab results, diagnosis, rad results - Departure Departure Disposition: Transfer Clinical Impression: Chest pain, Atrial fibrillation and flutter Condition: Stable Critical Care Time: Yes Critical Care Time(excluding separately billable procedures): Critical 30-74 mins Referrals: VICENTE LOVE MD [Primary Care Provider] -
[2019-05-16] MEDS ORDERED: LOPRESSOR 5 MG/5 ML INJECTION IV ONE ×2 (14:07→16:55)
[2019-05-16] MEDS: LOPRESSOR 5 MG/5 ML INJECTION IV ONE ×2 (14:07→16:56)
[2019-05-16] MEDS ORDERED: BABY ASPIRIN 81 MG CHEW ONE (14:07)
[2019-05-16] MEDS: BABY ASPIRIN 81 MG CHEW PO ONE (14:08)
[2019-05-16 14:11] LABS: Absolute Neutrophil Ct (ANC) 4.34 (1.4-6.9); BASOPHIL % 0.1 % (0.0-0.4); Basophil (Absolute #) 0.01 (0-0.4); Eosinophil % 3.9 % (0.00-5.0); Eosinophil (Absolute #) 0.31 (0-0.5); Hematocrit 33.9 % (35-47); Lymphocyte (Absolute #) 2.44 (1.0-4.6); Lymphocytes % 30.8 % (24.0-44.0); Mean Cell Volume 93.4 fl (78-100); Mean Corpuscular Hemoglobin 30.3 pg (26-32); Mean Corpuscular Hgb Concent. 32.4 g/dl (32-36); Mean Platelet Volume 10.3 fl (6-9.5); Monocyte (Absolute #) 0.81 (0.0-1.3); Monocytes % 10.2 % (0.0-12.0); Platelet Count 165 K/mm3 (150-450); Red Blood Count 3.63 M/mm3 (4.1-5.4); Red Cell Distribution Width 14.3 % (11.5-14.0); White Blood Count 7.9 K/mm3 (4.0-10.5)
[2019-05-16 14:30] LABS: ALBUMIN 4.2 g/dL (3.5-5.0); ANION GAP 13.2 MEQ/L (5-15); BILIRUBIN,TOTAL 0.5 mg/dL (0.2-1.3); Calcium 10.1 mg/dL (8.4-10.2); Creatinine 1 2.08 mg/dL (0.52-1.04); Potassium 3.8 mmol/L (3.5-5.1); Total Protein 7.5 g/dL (6.3-8.2)
--- NOTE | 2019-05-16 14:32 | XRAY ---
Indication: Chest pressure/flutter. Comparison: September 13, 2018. Portable chest demonstrates normal heart and lungs. Bony thorax intact again with mild degenerative changes. No new/acute findings.
[2019-05-16] MEDS ORDERED: MORPHINE SULFATE 2 MG INJ ONE ×2 (17:27→19:20)
[2019-05-16] MEDS: MORPHINE SULFATE 2 MG INJ IV ONE ×2 (17:30→19:23)
[2019-05-16 19:04] VITALS: BP 165/84; PULSE 100; O2SAT 95
== END 2019-05-16 19:31 | disposition short-term general hospital (02) ==
LOC: ED 13:36
DX: R07.9 Chest pain, unspecified (principal); I48.91 Unspecified atrial fibrillation; I48.92 Unspecified atrial flutter; Z79.899 Other long term (current) drug therapy; I12.9 Hypertensive chronic kidney disease with stage 1 through stage 4 chronic kidney disease, or unspecified chronic kidney disease; N18.9 Chronic kidney disease, unspecified; I50.9 Heart failure, unspecified; J44.9 Chronic obstructive pulmonary disease, unspecified; E78.00 Pure hypercholesterolemia, unspecified
CPT/HCPCS: 36000; 36415; 71045; 80053; 83880; 84484; 85025; 93005; 93041; 94760; 96374; 96375; 96376; 99285; 99291; J2270; A9270-GY

== ENCOUNTER 2023-04-09 07:21 | Day surgery (SDC) | payer MEDICARE ==
[2023-04-09] MEDS ORDERED: Lactated Ringers 1,000 ML IV SCH (08:00)
[2023-04-09 08:02] VITALS: RESP 18
[2023-04-09] MEDS ORDERED: CLINDAMYCIN-D5W 900 MG/50 ML*** 900 MG/50 ML BAG IV STA (08:03)
[2023-04-09] MEDS ORDERED: CLINDAMYCIN-D5W 900 MG/50 ML*** 900 MG/50 ML BAG IV ONE (08:06)
[2023-04-09 08:18] LABS: Absolute Neutrophil Ct (ANC) 3.46 x10^3/uL (1.4-6.9); BASOPHIL % 0.5 % (0.0-0.4); Basophil (Absolute #) 0.03 x10^3/uL (0-0.4); Eosinophil % 7.8 % (0.00-5.0); Eosinophil (Absolute #) 0.45 x10^3/uL (0-0.5); Hematocrit 34.5 % (35-47); Hemoglobin 10.9 g/dL (12.0-16.0); IMMATURE GRAN # 0.01 x10^3u/L (0.00-0.03); IMMATURE GRAN % 0.2 % (0.00-0.4); Lymphocyte (Absolute #) 1.32 x10^3/uL (1.0-4.6); Lymphocytes % 22.9 % (24.0-44.0); Mean Corpuscular Hgb Concent. 31.6 g/dL (32-36); Mean Platelet Volume 10.1 fL (7.5-11.0); Monocytes % 8.7 % (0.0-12.0); Neutrophil % 59.9 % (36.0-66.0); Platelet Count 137 x10^3/uL (150-450); Red Blood Count 3.63 x10^6/uL (4.1-5.4); Red Cell Distribution Width 14.8 % (11.5-14.0); White Blood Count 5.8 x10^3/uL (4.0-10.5)
[2023-04-09 08:34] LABS: ALBUMIN 4.1 g/dL (3.5-5.0); BILIRUBIN,TOTAL 0.6 mg/dL (0.2-1.3); Calcium 9.7 mg/dL (8.4-10.2); Creatinine 1 2.2 mg/dL (0.52-1.04); EST GLOMERULAR FILTRATION RATE 22.7 ML/MIN; Potassium 4.2 mmol/L (3.5-5.1); Total Protein 6.9 g/dL (6.3-8.2)
[2023-04-09 08:35] LABS: INR 1.02 (0.8-3.0); PROTIME 11.1 SECONDS (9.4-12.5); PTT 31.8 SECONDS (25.1-36.5)
[2023-04-09] MEDS ORDERED: DIPRIVAN 200 MG/20 ML IV ONE ×3 (09:24→11:37)
[2023-04-09] MEDS ORDERED: SUBLIMAZE 100 MCG/2 ML ONE (09:24)
[2023-04-09] MEDS ORDERED: Versed 2 MG/2 ML Injection ONE (09:24)
[2023-04-09] MEDS ORDERED: Xylocaine-Mpf 2% 5 Ml Vial ONE (09:24)
[2023-04-09] MEDS ORDERED: Marcaine 0.5%/Epinephrine 10 ML ONE (10:23)
[2023-04-09] MEDS ORDERED: XYLOCAINE 1% HCL 20 ML MDV ONE (10:23)
[2023-04-09] MEDS ORDERED: Marcaine Mpf 0.5% Vial 30 Ml ONE (10:25)
--- NOTE | 2023-04-09 12:41 | XRAY ---
Indication: Excision left 1st MTP tophus gout. Intraoperative fluoroscopy provided for 1 minute 53 seconds. 9 digital spot images submitted for interpretation ultimately demonstrates arthrodesis 1st MTP with intact fixation plate/screws. Correlate with intraoperative findings/report.
[2023-04-09 13:10] VITALS: TEMP 97.7
[2023-04-09 13:23] VITALS: BP 171/51; PULSE 53; O2SAT 93
--- NOTE | 2023-04-12 14:06 | OP ---
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 3) Pain left foot. 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 3) Pain left foot. PROCEDURES: 1) Excision of soft tissue mass. 2) Arthrotomy as well as to first metatarsophalangeal joint arthrodesis. SURGEON: Fady Box DPM. SUPERVISOR PIPELINE: None. ANESTHESIA: Monitored anesthesia care with intraoperative block consisting of 20 cc of 1:1 mixture of 1% lidocaine plain and 0.5% bupivacaine plain injected in a Herrrea block-type fashion. HEMOSTASIS: Ankle tourniquet set to 250 mm of Mercury for a total of 60 total tourniquet minutes. ESTIMATED BLOOD LOSS: Minimal. INJECTABLES: 20 cc of 1:1 mixture of 1% lidocaine plain and 0.5% bupivacaine plain injected in a hallux block-type fashion. MATERIALS: [place] 0 degree first metatarsophalangeal left with a 4.0 x 40 VPC screw and a combination of locking and nonlocking screws from [employer], 4-0 Monocryl, 3-0 Nylon. INDICATION FOR SURGERY: Jermaine is a very pleasant 82-year-old female who presented to my clinic approximately four to five months ago for complaints of pain secondary to significantly tophaceous gouty foot with fistulas to the surface of the skin. At that time the patient had an infection. Antibiotics were provided with minor wound care which resolved a majority of the patients for that time. The patient continued to have pain and issues with the wound opening causing pain and concern for infection. Discussion was held in regards to expectation following intervention for procedure of this site. The patient was not guaranteed that this procedure would work as far as removal of the soft tissue mass as well as fusion of the joint and as a result of how long the tophaceous gout had been present further resulting in possible amputation of the toe. The patient had been experiencing significant amount of pain and unable to bear weight to the foot. At this time she is willing to proceed. She and her family have been given plenty of time to ask questions which were answered to her apparent satisfaction. Once again no guarantees have been provided as to the outcome and the patient has relatively high to moderate probability that there would likely be an amputation due to devascularization and significant skin loss if this procedure failed. The patient understands this risk and is willing to proceed. The patient understands all risks, benefits and complications. Once again no guarantees were provided. It is at this time we decided to proceed. DESCRIPTION OF PROCEDURE AND FINDINGS: The patient is brought into the OR and placed on the OR table in the supine position. Monitored anesthesia care was administered until the patient was sedated. A well-padded ankle tourniquet applied to the patients left ankle and the tourniquet set to 250 mm of Mercury. At this time, the left lower extremity was prepped and draped in the typical sterile fashion and lowered onto the surgical field. At this time attention was directed to the soft tissue mass to dorsomedial aspect of the first metatarsophalangeal joint. A linear incision was made and the soft tissue mass was excised revealing a significant deficit at the medial aspect of the metatarsal head with significant erosion. From that stand point, copious amounts of sterile saline were utilized to flush the site. The tophaceous gout was removed and sent off the field for pathologic assessment, likely high probability of this being tophaceous gout based on clinical and systematic review of the patients clinical and medical history. From that standpoint the cartilage was denuded off of both the proximal phalangeal base and the metatarsal head. A left first metatarsophalangeal neutral plate was introduced dorsally along with interfragmentary screw gaining compression to the first metatarsophalangeal joint after having fenestrating it with a 2.0 mm drill and cleaning out any of the remaining cartilage. Tourniquet was let down at certain points throughout the procedure in order to assess viability and bleeding. The patient seemed to have a decent amount of bleeding in the bone as well as to the surrounding skin. It was important that we note that the patient did have an artificial periosteum in a masquerade technique secondary to the soft tissue mass surrounding the structure this was preserved for use in closure following the procedure. At this time the position was checked under multiple views. Compression was excellent to the first metatarsophalangeal joint. 4-0 Monocryl was utilized to coapt the subcutaneous skin edges. Partial resection of the skin was performed secondary to the significant size of the mass. However, tension was not allowed on the wound edges. From that standpoint, 4-0 Monocryl was utilized to coapt the subcutaneous skin edges, 4-0 Nylon was utilized in a horizontal mattress-type fashion to coapt the skin edges in an everted-type fashion. Following this a dressing consisting of Betadine, Adaptic, 4x4, Kerlix and ZARINA were applied to the patient's left lower extremity along with a posterior splint with the foot orthogonal relative to longitudinal aspect of the leg. The patient was then reversed from anesthesia and returned to the postoperative anesthesia care unit with vital signs stable and vascular status intact. The patient handled the anesthesia as well as the procedure without significant complication. Postoperative orders as indicated in the patient's discharge chart.
--- NOTE | 2023-04-12 14:54 | XRAY ---
One minute and 53 seconds of fluoroscopy was used in surgery for a excision left 1st MTP tophus gout.
== END 2023-04-09 13:40 | disposition home or self-care (01) ==
LOC: SDC 07:21
PROVIDERS: ATTEND Podiatrist Foot & Ankle Surgery
DX: M1A.9XX1 Chronic gout, unspecified, with tophus (tophi) (principal); M19.072 Primary osteoarthritis, left ankle and foot; M79.672 Pain in left foot
CPT/HCPCS: 28022; 28750; 36415; 73630; 76000; 80053; 85025; 85610; 85730; 93005; C1713; C1769; 99100; J2250; J2704; J3010

== ENCOUNTER 2023-10-23 09:03 | Observation (INO) | payer MEDICARE ==
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
[2023-10-23] MEDS ORDERED: Zofran 4 MG/2 ML VIAL ONE (09:58)
[2023-10-23] MEDS ORDERED: Sodium Chloride 0.9% 1000 ML 1,000 ML ONE (09:58)
[2023-10-23] MEDS: Zofran 4 MG/2 ML VIAL IV ONE (09:59)
[2023-10-23] MEDS: Sodium Chloride 0.9% 1000 ML 1,000 ML IV STA (09:59)
[2023-10-23 10:07] LABS: Absolute Neutrophil Ct (ANC) 6.66 x10^3/uL (1.4-6.9); BASOPHIL % 0.2 % (0.0-0.4); Basophil (Absolute #) 0.02 x10^3/uL (0-0.4); Eosinophil % 1.4 % (0.00-5.0); Eosinophil (Absolute #) 0.12 x10^3/uL (0-0.5); Hematocrit 30.8 % (35-47); Hemoglobin 10.3 g/dL (12.0-16.0); IMMATURE GRAN # 0.05 x10^3u/L (0.00-0.03); IMMATURE GRAN % 0.6 % (0.00-0.4); Lymphocyte (Absolute #) 0.81 x10^3/uL (1.0-4.6); Lymphocytes % 9.5 % (24.0-44.0); Mean Cell Volume 90.3 fL (78-100); Mean Corpuscular Hemoglobin 30.2 pg (26-32); Mean Corpuscular Hgb Concent. 33.4 g/dL (32-36); Mean Platelet Volume 10.8 fL (7.5-11.0); Monocyte (Absolute #) 0.87 x10^3/uL (0.0-1.3); Monocytes % 10.2 % (0.0-12.0); Neutrophil % 78.1 % (36.0-66.0); Platelet Count 160 x10^3/uL (150-450); Red Blood Count 3.41 x10^6/uL (4.1-5.4); Red Cell Distribution Width 14.2 % (11.5-14.0); White Blood Count 8.5 x10^3/uL (4.0-10.5)
[2023-10-23 10:19] LABS: ALBUMIN 3.5 g/dL (3.5-5.0); ANION GAP 9.1 MEQ/L (5-15); BILIRUBIN,TOTAL 0.9 mg/dL (0.2-1.3); Calcium 9.4 mg/dL (8.4-10.2); Creatinine 1 1.82 mg/dL (0.52-1.04); EST GLOMERULAR FILTRATION RATE 27.1 ML/MIN; Potassium 4.3 mmol/L (3.5-5.1); Total Protein 6.3 g/dL (6.3-8.2)
[2023-10-23 10:44] LABS: INFLUENZA A NEGATIVE (NEGATIVE); INFLUENZA B NEGATIVE (NEGATIVE); RESPIRATORY SYNCTIAL VIRUS NEGATIVE (NEGATIVE); SARS-CoV-2 Xpert Express NEGATIVE (NEGATIVE)
[2023-10-23 10:55] LABS: Appearance Clear (Clear); Bacteria None Seen /HPF (None Seen); Bilirubin Negative (Negative); Blood Negative (Negative); Epithelial Cells Few /HPF (None Seen); Glucose, Urine Negative (Negative); Ketones Negative (Negative); Leukocyte Esterase Trace (Negative); Nitrite Negative (Negative); Ph 5.5 (4.6-8.0); Protein,Urine Dip 100 (Negative); RBC 0-2 /HPF (0-5); Specific Gravity 1.015 (1.005-1.030)
[2023-10-23 11:01] LABS: ADD URINE CULTURE? YES (NO)
[2023-10-23] MEDS ORDERED: ROCEPHIN 1 GM / 100 ML NaCl 1 GM/100 ML IVPB IV ONE (11:11)
[2023-10-23] MEDS: ROCEPHIN 1 GM / 100 ML NaCl 1 GM/100 ML IVPB IV ONE (11:12)
[2023-10-23] MEDS: BACIGUENT 30 GM TOP ONE (11:17)
[2023-10-23] MEDS ORDERED: Lasix 40 MG/4 ML ONE (11:43)
[2023-10-23] MEDS: Lasix 40 MG/4 ML IV ONE (11:45)
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
[2023-10-23] MEDS ORDERED: DUONEB 0.5-3 MG/3 ml Neb IH SCH (15:00)
[2023-10-23] MEDS ORDERED: Compazine 10 MG/2 ML IV PRN (15:02)
[2023-10-23] MEDS ORDERED: TYLENOL 325 MG PO PRN (15:10)
[2023-10-23] MEDS ORDERED: NON-FORMULARY ITEM (Carvedilol [Coreg] 25 MG Tablet) PO SCH (15:12)
[2023-10-23] MEDS ORDERED: NON-FORMULARY ITEM (Hydralazine Hcl [Hydralazine Hcl] 10 MG Tablet) PO SCH (15:12)
[2023-10-23] MEDS ORDERED: Ventolin Hfa MDI IH SCH (15:15)
[2023-10-23] MEDS: ROCEPHIN 1 GM / 100 ML NaCl 1 GM/100 ML IVPB IV SCH (15:21)
[2023-10-23] MEDS ORDERED: VENTOLIN COMMON CANISTER IH PRN (15:50)
[2023-10-23] MEDS: TENIVAC VIAL IM ONE (15:52)
[2023-10-23] MEDS: CLONIDINE 0.1 MG TABLET PO SCH (15:56)
[2023-10-23] MEDS: SILVADENE 50 GM TP SCH (15:56)
[2023-10-23] MEDS: Cordarone 200 MG PO SCH (15:56)
--- NOTE | 2023-10-23 19:48 | XRAY ---
Indication: Cough. Comparison: October 21, 2023 Portable chest remains hyperinflated with stable mild bibasilar subsegmental atelectasis/scarring. New subtle right midlung groundglass airspace disease without consolidation/effusion. Heart not enlarged.
[2023-10-23] MEDS ORDERED: Klor Con PO SCH (22:00)
[2023-10-23] MEDS ORDERED: NON-FORMULARY ITEM (Apixaban [Eliquis] 5 MG Tablet) PO SCH (22:00)
[2023-10-23] MEDS: Apresoline 25 MG TABLET PO SCH (22:17)
[2023-10-23] MEDS: PERCOCET TABLET 5/325MG PO PRN (23:25)
[2023-10-23] MEDS: ELIQUIS 2.5 MG TABLET PO SCH (23:25)
[2023-10-23] MEDS: COREG 12.5 MG PO SCH (23:26)
[2023-10-23] MEDS: Klor Con PO SCH (23:26)
[2023-10-24 06:16] LABS: Hematocrit 27.1 % (35-47); Hemoglobin 8.9 g/dL (12.0-16.0); Mean Cell Volume 90.9 fL (78-100); Mean Corpuscular Hemoglobin 29.9 pg (26-32); Mean Corpuscular Hgb Concent. 32.8 g/dL (32-36); Mean Platelet Volume 10.7 fL (7.5-11.0); Platelet Count 144 x10^3/uL (150-450); Red Blood Count 2.98 x10^6/uL (4.1-5.4); Red Cell Distribution Width 14.3 % (11.5-14.0); White Blood Count 6.9 x10^3/uL (4.0-10.5)
[2023-10-24 06:44] LABS: ANION GAP 8.7 MEQ/L (5-15); BILIRUBIN,TOTAL 0.5 mg/dL (0.2-1.3); Calcium 9.1 mg/dL (8.4-10.2); Creatinine 1 1.9 mg/dL (0.52-1.04); EST GLOMERULAR FILTRATION RATE 25.7 ML/MIN; Potassium 3.8 mmol/L (3.5-5.1); Total Protein 5.7 g/dL (6.3-8.2)
[2023-10-24 07:01] VITALS: RESP 16
[2023-10-24] MEDS ORDERED: NON-FORMULARY ITEM (Atorvastatin Calcium [Atorvastatin Calcium] 10 MG Tablet) PO SCH (10:00)
[2023-10-24] MEDS ORDERED: NON-FORMULARY ITEM (Sertraline Hcl [Zoloft] 25 MG Tablet) PO SCH (10:00)
[2023-10-24] MEDS ORDERED: NON-FORMULARY ITEM (Omeprazole Magnesium [Prilosec Otc] 20 MG Tablet.Dr) PO SCH (10:00)
[2023-10-24] MEDS ORDERED: SYNTHROID 50 MCG PO SCH (10:00)
[2023-10-24] MEDS: ZOLOFT 50 MG TABLET PO SCH (10:07)
[2023-10-24] MEDS: Lasix 40 MG PO SCH (10:08)
[2023-10-24] MEDS: ZYLOPRIM 300 MG PO SCH (10:08)
[2023-10-24] MEDS: Protonix 40MG Tablet PO SCH (10:09)
[2023-10-24] MEDS: SYNTHROID 75 MCG PO SCH (10:09)
[2023-10-24] MEDS: ECOTRIN 81 MG PO SCH (10:12)
[2023-10-24] MEDS: Pepcid 20 MG PO SCH (10:12)
[2023-10-24] MEDS: ROCEPHIN 1 GM / 100 ML NaCl 1 GM/100 ML IVPB IV SCH (10:18)
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
[2023-10-24 11:57] VITALS: BP 163/72; PULSE 56; TEMP 97.4; O2SAT 96
--- NOTE | 2023-10-24 13:57 | PCM.DCORD ---
- Discharge Discharge Date: 10/24/23 Disposition: Home, Self-Care Condition: Stable Prescriptions: New Silver Sulfadiazine 50 gm [Silvadene 50 gm] 50 gm TP BID 10 Days #1 applic Amoxicillin 1,000 mg PO TID 5 Days #15 tablet Prochlorperazine Maleate 5 mg* [Compazine 5 MG] 5 mg PO QIDPRN PRN 8 Days #30 tablet PRN Reason: Nausea/Vomiting Continue carvediloL [Coreg] 25 mg PO BID Aspirin EC 81 mg [Ecotrin 81 mg] 81 mg PO DAILY Omeprazole Magnesium [Prilosec Otc] 40 mg PO DAILY Hydralazine HCl 50 mg PO TID Furosemide 40 mg [Lasix 40 MG] 40 mg PO DAILY Simvastatin 20Mg [Zocor 20Mg] 20 mg PO DAILY Potassium Chloride Tab* [Klor Con] 10 meq PO BID Famotidine 20 mg PO DAILY Sertraline HCl [Zoloft] 25 mg PO DAILY Oxycodone HCl/Acetaminophen [Percocet 5-325 mg Tablet] 1 tab PO DAILY PRN PRN Reason: Pain Amiodarone HCl 200 mg PO BID Apixaban [Eliquis] 5 mg PO BID Amlodipine Besylate 5 mg [Norvasc 5 mg] 5 mg PO DAILY Allopurinol 300 mg [Zyloprim 300 mg] 300 mg PO DAILY Atorvastatin Calcium 10 mg PO DAILY Levothyroxine Sodium 50 Mcg [Synthroid 50 Mcg] 75 mcg PO DAILY Clonidine HCl 0.1 mg [Clonidine 0.1 mg Tablet] 1 tab PO BID Albuterol 8 gm Mdi Hfa [Ventolin Hfa MDI] 2 puffs IH UD Instructions: Obesity, Adult, High blood pressure in adults, Skin Nolen (DC), High Cholesterol (DC), Amoxicillin, Silver Sulfadiazine Additional Instructions: Wash hands before and after touching wounds. Clean wound twice daily with cool water and chlorhexidine. This can be found over the counter at any pharmacy. If draining replace dressings with nonstick telfa. If not draining keep wounds open. Apply ointment twice daily. Follow up with PCP this week. If wounds worsen follow up sooner. Eat before taking antibiotics. If diarrhea develops you can take over the counter probiotics. I have also sent in nausea medication if needed. Follow up with: VICENTE LOVE MD [Primary Care Provider] - Call for Appointment (Call Wednesday10/25/23 for a 1 week follow-up appointment) Forms: Discharge Instructions
[2023-10-24] MEDS ORDERED: NORVASC 5 MG PO SCH (15:12)
[2023-10-24] MEDS ORDERED: ZOCOR 20MG PO SCH (22:00)
== END 2023-10-24 13:32 | disposition home or self-care (01) ==
LOC: ED 09:03 → MED SURG 13:50
PROVIDERS: ADMIT Internal Medicine; ATTEND Internal Medicine
DX: J18.9 Pneumonia, unspecified organism (principal); T24.211A Burn of second degree of right thigh, initial encounter; T21.22XA Burn of second degree of abdominal wall, initial encounter; R11.0 Nausea; I13.0 Hypertensive heart and chronic kidney disease with heart failure and stage 1 through stage 4 chronic kidney disease, or unspecified chronic kidney disease; N18.9 Chronic kidney disease, unspecified; I50.9 Heart failure, unspecified; E78.5 Hyperlipidemia, unspecified; I48.20 Chronic atrial fibrillation, unspecified; J44.9 Chronic obstructive pulmonary disease, unspecified; E03.9 Hypothyroidism, unspecified; E66.01 Morbid (severe) obesity due to excess calories; K21.9 Gastro-esophageal reflux disease without esophagitis; J96.01 Acute respiratory failure with hypoxia; Z79.01 Long term (current) use of anticoagulants; Z79.899 Other long term (current) drug therapy
CPT/HCPCS: 0241U; 36415; 71045; 80053; 80061; 81001; 83605; 83721; 84145; 84484; 85025; 85027; 87086; 90471; 93005; 93268; 94760; 94762; 96360; 96365; 96374; 99285; G0378; Q3014; 90714; J0696; J1940; J2405; A9270-GY

== ENCOUNTER 2024-11-15 09:57 | Emergency (ER) | payer MEDICARE ==
--- NOTE | 2024-11-15 10:03 | ERPHSYRPT ---
- History of Present Illness Time Seen by Provider: 11/15/24 10:02 Source: patient, family Exam Limitations: no limitations Physician History: This is an 84-year-old white female patient of Dr. Love who arrives by private vehicle accompanied by family member with a complaint initially of fever but also there was complaint of chest tightness that have been intermittent for the last few days as well as left shoulder pain without any trauma or fall. The patient has a history of atrial fibrillation and is on anticoagulation therapy. Patient has a history of hypertension, hyperlipidemia, depression, gastroesophageal reflux disease, hypothyroidism, chronic renal disease and gout. She has not had any nausea vomiting or diarrhea symptoms. Timing/Duration: day(s) Fever Severity: mild Fever Therapy BEEF SPLITTER: none Associated Symptoms: chest pain (Describes it as a generalized tightness), No cough, No headache, No nausea/vomiting, No shortness of breath Allergies/Adverse Reactions: cefaclor [From Ceclor] Allergy (Mild, Verified 10/23/23 09:14) Rash cephalexin monohydrate [From Keflex] Allergy (Mild, Verified 10/23/23 09:14) Rash fenoprofen calcium [From Nalfon] Allergy (Unknown, Verified 10/23/23 09:14) butorphanol tartrate [From Stadol] Adverse Reaction (Severe, Verified 10/23/23 09:14) Nausea and Vomiting hydromorphone HCl [From Dilaudid] Adverse Reaction (Intermediate, Verified 10/23/23 09:14) states make her very sleepy and "out of it for 3 days" Home Medications: Aspirin EC 81 mg [Ecotrin 81 mg] 81 mg PO DAILY 02/08/13 [History] carvediloL [Coreg] 25 mg PO BID 02/08/13 [History] Omeprazole Magnesium [Prilosec Otc] 40 mg PO DAILY 06/23/16 [History] Furosemide 40 mg [Lasix 40 MG] 40 mg PO DAILY 03/29/17 [History] Hydralazine HCl 50 mg PO TID 03/29/17 [History] Potassium Chloride Tab* [Klor Con] 10 meq PO BID 03/29/17 [History] Simvastatin 20Mg [Zocor 20Mg] 20 mg PO DAILY 03/29/17 [History] Famotidine 20 mg PO DAILY 05/16/19 [History] Oxycodone HCl/Acetaminophen [Percocet 5-325 mg Tablet] 1 tab PO DAILY PRN 05/16/19 [History] Sertraline HCl [Zoloft] 25 mg PO DAILY 05/16/19 [History] Amiodarone HCl 200 mg PO BID 09/15/19 [History] Apixaban [Eliquis] 5 mg PO BID 09/15/19 [History] Albuterol 8 gm Mdi Hfa [Ventolin Hfa MDI] 2 puffs IH UD 12/08/22 [History] Allopurinol 300 mg [Zyloprim 300 mg] 300 mg PO DAILY 12/08/22 [History] Amlodipine Besylate 5 mg [Norvasc 5 mg] 5 mg PO DAILY 12/08/22 [History] Atorvastatin Calcium 10 mg PO DAILY 12/08/22 [History] Clonidine HCl 0.1 mg [Clonidine 0.1 mg Tablet] 1 tab PO BID 12/08/22 [History] Levothyroxine Sodium 50 Mcg [Synthroid 50 Mcg] 75 mcg PO DAILY 12/08/22 [History] Hx Tetanus, Diphtheria Vaccination/Date Given: Yes Hx Influenza Vaccination/Date Given: Yes Hx Pneumococcal Vaccination/Date Given: Yes Travel Risk - International Travel Have you traveled outside of the country in past 3 weeks: No - Emerging Infectious Disease Are you exhibiting symptoms associated with any current EIDs: No - Review of Systems Constitutional: Fever Eyes: No Symptoms Ears, Nose, & Throat: No Symptoms Respiratory: No Symptoms Cardiac: Chest Pain (Described as more of an intermittent tightness and pressure. No significant chest pain today) Abdominal/Gastrointestinal: No Symptoms Genitourinary Symptoms: No Symptoms Musculoskeletal: Back Pain (Lower back pain) Skin: No Symptoms Neurological: No Symptoms Psychological: No Symptoms Endocrine: No Symptoms Hematologic/Lymphatic: No Symptoms Immunological/Allergic: No Symptoms All Other Systems: Reviewed and Negative - Past Medical History Pertinent Past Medical History: Yes Neurological History: No Pertinent History ENT History: No Pertinent History, Cataracts Cardiac History: Congestive Heart Failure, High Cholesterol, Hypertension, Other (chronic a-fib) Respiratory History: COPD, Other Endocrine Medical History: Other Musculoskeletal History: Arthritis, Osteoarthritis GI Medical History: GERD, Polyps, Other History: Renal Disease Psycho-Social History: No Pertinent History Female Reproductive Disorders: Abnormal Uterine Bleeding Other Medical History: Growth on thyroid, at one time used a Cpap, hx sleep apnea, history of hysterectomy for abnormal uterine bleeding years ago, - Past Surgical History Past Surgical History: Yes Neuro Surgical History: No Pertinent History Cardiac: Cardiac Catheterization Respiratory: No Pertinent History Gastrointestinal: Appendectomy, Cholecystectomy, Colon Resection Genitourinary: No Pertinent History Musculoskeletal: Joint Replacement, Orthopedic Surgery Female Surgical History: Hysterectomy, Other Other Surgical History: right total knee replacement, lower back surgery, left elbow surgery, colon resection-no cancer. breast biopsy-no cancer, egd,colonoscopy, - Social History Smoking Status: Former smoker Exposure to second hand smoke: No Drug Use: none - Social Determinants of Health Will the patient participate in the screening: Yes Do you worry about a steady place to live?: No In the past 12 months,have you had to go without utilities?: No Transportation Issues: No Has anyone in your support network made you feel unsafe?: No Have you or anyone in your house had to go w/o enough food: No - Nursing Vital Signs Nursing Vital Signs: Initial Vital Signs Temperature 99.4 F 11/15/24 09:57 Pulse Rate 78 11/15/24 09:57 Respiratory Rate 18 11/15/24 09:57 Blood Pressure 148/62 11/15/24 09:57 O2 Sat by Pulse Oximetry 95 11/15/24 09:57 Pain Scale Pain Intensity 3 - Physical Exam General Appearance: no apparent distress, alert, anxiety Eye Exam: PERRL/EOMI, eyes nml inspection ENT Exam: normal ENT inspection, no apparent trauma, hearing grossly normal Neck Exam: normal inspection, non-tender, supple, full range of motion, trachea midline Respiratory Exam: normal breath sounds, lungs clear, no respiratory distress, no accessory muscle use, No chest non-tender Cardiovascular/Chest Exam: normal heart sounds, regular rate/rhythm, normal peripheral pulses Gastrointestinal/Abdominal Exam: soft, non tender, no distention, no mass, no guarding, no ecchymosis, no organomegaly, no pulsatile mass, normal bowel sounds Pelvic Exam: not done Rectal Exam: not done Extremity Exam: non-tender, normal range of motion, normal inspection, normal capillary refill, no calf tenderness, no pedal edema, pelvis stable Neurologic Exam: alert, oriented x 3, cooperative, 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 No acute ischemic changes.) Ordered Tests: Active Orders 24 hr Category Date Time Status EKG-ER Only STAT Care 11/15/24 11:34 Active Oxygen-ED Only Nasal Cannula 2 lpm Care 11/15/24 12:09 Active ABDOMEN AND PELVIS W/0 CONTRAS [CT] Stat Exams 11/15/24 10:45 Completed CHEST 1 VIEW (PORTABLE) Stat Exams 11/15/24 10:46 Completed BLOOD CULTURE Stat Lab 11/15/24 11:25 Received CBC W DIFF Stat Lab 11/15/24 11:03 Completed CMP Stat Lab 11/15/24 11:03 Completed CULTURE,URINE Stat Lab 11/15/24 10:46 Ordered Lactic Acid Stat Lab 11/15/24 10:45 Completed MAGNESIUM Stat Lab 11/15/24 11:03 Completed MONO SCREEN Stat Lab 11/15/24 11:03 Completed NT PRO BNPII Stat Lab 11/15/24 11:03 Completed TROPONIN Q4H Lab 11/15/24 11:03 Completed TROPONIN Q4H Lab 11/15/24 15:00 Ordered TROPONIN Q4H Lab 11/15/24 19:00 Ordered UA W/RFX UR CULTURE Stat Lab 11/15/24 10:46 Ordered Medication Summary Discontinued Medications Generic Name Dose Route Start Last Admin Trade Name Freq PRN Reason Stop Dose Admin Furosemide 40 mg 11/15/24 11:47 11/15/24 12:32 Furosemide 40 Mg/4 Ml Vial IV 11/15/24 11:48 40 mg STAT ONE Administration Furosemide Confirm 11/15/24 12:31 Furosemide 40 Mg/4 Ml Vial Administered 11/15/24 12:32 Dose 40 mg .ROUTE .STK-MED ONE Levofloxacin/Dextrose 500 mg in 100 mls @ 100 mls/hr 11/15/24 12:23 11/15/24 13:30 Levofloxacin 500mg/100ml D5w IV 11/15/24 13:22 Infused STAT STA Infusion Levofloxacin/Dextrose Confirm 11/15/24 12:31 Levofloxacin 500mg/100ml D5w Administered 11/15/24 12:32 Dose 500 mg in 100 mls @ ud IV .[facility]-MED ONE Lab/Rad Data: Laboratory Result Diagrams 11/15/24 11:03 11/15/24 11:03 Laboratory Results 11/15/24 11/15/24 11/15/24 Range/Units 11: 11:03 11:03 WBC (3.98-10.04) x10^3/uL RBC (3.93-5.22) x10^6/uL Hgb (11.2-15.7) g/dL Hct (34.1-44.9) % MCV (79.4-94.8) fL MCH (25.6-32.2) pg MCHC (32.2-35.5) g/dL RDW (11.7-14.4) % Plt Count (182-369) x10^3/uL MPV (9.4-12.3) fL Gran % (34.0-71.1) % Immature Gran % (Auto) (0.001-0.429) % Nucleat RBC Rel Count (0.00-0.2) % Eos # (Auto) (0.04-0.36) x10^3/uL Immature Gran # (Auto) (0.001-0.031) x10^3u/L Absolute Lymphs (auto) (1.18-3.74) x10^3/uL Absolute Monos (auto) (0.24-0.86) x10^3/uL Absolute Nucleated RBC (0.00-0.012) x10^3u/L Lymphocytes % (19.3-51.7) % Monocytes % (4.7-12.5) % Eosinophils % (0.7-5.8) % Basophils % (0.1-1.2) % Absolute Granulocytes (1.56-6.13) x10^3/uL Basophils # (0.01-0.08) x10^3/uL Sodium (135-145) mmol/L Potassium (3.5-5.1) mmol/L Chloride (98-107) mmol/L Carbon Dioxide (22-30) mmol/L Anion Gap (5-15) MEQ/L BUN (7-17) mg/dL Creatinine (0.52-1.04) mg/dL Estimated GFR ML/MIN Glucose (74-106) mg/dL Lactic Acid (0.4-2.0) Calcium (8.4-10.2) mg/dL Magnesium (1.6-2.3) mg/dL Total Bilirubin (0.2-1.3) mg/dL AST (14-36) U/L ALT (0-35) U/L Alkaline Phosphatase (38-126) U/L Troponin I 0.455 H* (0.000-0.033) ng/mL NT-Pro-B Natriuret Pep (<300) pg/mL Serum Total Protein (6.3-8.2) g/dL Albumin (3.5-5.0) g/dL Monoscreen NEGATIVE (NEGATIVE) Influenza Type A Ag NEGATIVE (NEGATIVE) Influenza Type B Ag NEGATIVE (NEGATIVE) RSV (PCR) NEGATIVE (NEGATIVE) SARS-CoV-2 (PCR) NEGATIVE (NEGATIVE) 11/15/24 11/15/24 11/15/24 Range/Units 11:03 11:03 10:45 WBC 13.7 H (3.98-10.04) x10^3/uL RBC 3.55 L (3.93-5.22) x10^6/uL Hgb 10.5 L (11.2-15.7) g/dL Hct 32.2 L (34.1-44.9) % MCV 90.7 (79.4-94.8) fL MCH 29.6 (25.6-32.2) pg MCHC 32.6 (32.2-35.5) g/dL RDW 14.5 H (11.7-14.4) % Plt Count 142 L (182-369) x10^3/uL MPV 10.9 (9.4-12.3) fL Gran % 78.7 H (34.0-71.1) % Immature Gran % (Auto) 0.5 H (0.001-0.429) % Nucleat RBC Rel Count 0.0 (0.00-0.2) % Eos # (Auto) 0.48 H (0.04-0.36) x10^3/uL Immature Gran # (Auto) 0.07 H (0.001-0.031) x10^3u/L Absolute Lymphs (auto) 1.31 (1.18-3.74) x10^3/uL Absolute Monos (auto) 1.03 H (0.24-0.86) x10^3/uL Absolute Nucleated RBC 0.00 (0.00-0.012) x10^3u/L Lymphocytes % 9.6 L (19.3-51.7) % Monocytes % 7.5 (4.7-12.5) % Eosinophils % 3.5 (0.7-5.8) % Basophils % 0.2 (0.1-1.2) % Absolute Granulocytes 10.77 H (1.56-6.13) x10^3/uL Basophils # 0.03 (0.01-0.08) x10^3/uL Sodium 136 (135-145) mmol/L Potassium 4.1 (3.5-5.1) mmol/L Chloride 98 (98-107) mmol/L Carbon Dioxide 28 (22-30) mmol/L Anion Gap 14.0 (5-15) MEQ/L BUN 24 H (7-17) mg/dL Creatinine 1.90 H (0.52-1.04) mg/dL Estimated GFR 25.6 ML/MIN Glucose 134 H (74-106) mg/dL Lactic Acid 1.5 (0.4-2.0) Calcium 10.4 H (8.4-10.2) mg/dL Magnesium 1.8 (1.6-2.3) mg/dL Total Bilirubin 1.00 (0.2-1.3) mg/dL AST 30 (14-36) U/L ALT 18 (0-35) U/L Alkaline Phosphatase 94 (38-126) U/L Troponin I (0.000-0.033) ng/mL NT-Pro-B Natriuret Pep 6050 (<300) pg/mL Serum Total Protein 6.2 L (6.3-8.2) g/dL Albumin 3.6 (3.5-5.0) g/dL Monoscreen (NEGATIVE) Influenza Type A Ag (NEGATIVE) Influenza Type B Ag (NEGATIVE) RSV (PCR) (NEGATIVE) SARS-CoV-2 (PCR) (NEGATIVE) - Progress Progress: improved, pain not gone completely, re-examined Progress Note: 11/15/24 10:58 My medical decision making of the assignment of moderate complexity to this patient's medical issue today is based on review of the patient's past medical history, review the patient's medication list, reviewed patient drug allergy list, history present illness and physical findings on examination. The workup in this patient includes placement of intravenous line, CBC, CMP, magnesium level, troponin level, BNP, twelve-lead EKG, chest x-ray, viral swabs, monotest, urinalysis, CT scan of the abdomen pelvis without contrast. Differential diagnosis includes but is not limited to myocardial infarction, arrhythmia, electrolyte abnormalities, urinary tract infection, dehydration, upper respiratory infection, viral illness, acute intra-abdominal/pelvic abnormality, acute versus chronic lumbar spine abnormality 11/15/24 11:29 The preliminary report of the chest x-ray was interpreted by me. There is a questionable left upper lobe infiltrate. The final chest x-ray report was interpreted by the radiologist. The impression states left upper lobe patchy groundglass airspace disease without large effusion. 11/15/24 12:[address] scan of the abdomen pelvis without contrast was interpreted by the radiologist and I reviewed the impression. The impression states infraumbilical ventral hernia with noncomplicated herniation loop of the transverse colon. There are chronic bony findings. There is mild scattered aortoiliac calcifications without abdominal aortic aneurysm. There is no evidence of free air or free fluid. 11/15/24 12:41 I interpreted the patient's laboratory data results. Based on the laboratory data results, the patient does have a leukocytosis with a left shift. Patient has evidence of chronic renal disease. Compared to prior labs, the GFR today is within her typical range. Patient also has a significant elevated BNP of over 6000. Comparison BNP in the year 2019, it was normal. Patient's troponin level is elevated at 0.455. I compared this to prior dates and today's lab is significantly elevated. Patient's viral swabs are negative 11/15/24 13:[address] Larsen, the emergency room physician at [facility]. I reviewed the patient's past medical history, presenting complaint, history of present illness and physical findings on examination. I also reviewed the results of our workup with him. He accepts the patient in transfer. Counseled pt/family regarding: lab results, diagnosis, rad results Medical Desision Making - Independent Historian Additional History obtained from: Family - Diagnostic Testing Diagnostic test were ordered, analyzed, and reviewed by me: Yes Radiological Interpretation: Interpreted by me, Reviewed by me, Teleradiologist Report - Risk of complications The pt has a high risk of morbidity or mortality based on: Decision regarding hospitilization or escalation of hosp level of care - Departure Departure Disposition: Transfer Clinical Impression: Left pulmonary infiltrate on CXR, Leukocytosis, Elevated brain natriuretic peptide (BNP) level, Elevated troponin, Chronic renal disease Condition: Fair Critical Care Time: No Referrals: VICENTE LOVE MD [Primary Care Provider, [facility]] - Follow up/PCP as directed
[2024-11-15 11:04] LABS: Absolute Neutrophil Ct (ANC) 10.77 x10^3/uL (1.56-6.13); BASOPHIL % 0.2 % (0.1-1.2); Basophil (Absolute #) 0.03 x10^3/uL (0.01-0.08); Eosinophil % 3.5 % (0.7-5.8); Eosinophil (Absolute #) 0.48 x10^3/uL (0.04-0.36); Hematocrit 32.2 % (34.1-44.9); Hemoglobin 10.5 g/dL (11.2-15.7); IMMATURE GRAN # 0.07 x10^3u/L (0.001-0.031); IMMATURE GRAN % 0.5 % (0.001-0.429); Lymphocyte (Absolute #) 1.31 x10^3/uL (1.18-3.74); Lymphocytes % 9.6 % (19.3-51.7); Mean Cell Volume 90.7 fL (79.4-94.8); Mean Corpuscular Hemoglobin 29.6 pg (25.6-32.2); Mean Corpuscular Hgb Concent. 32.6 g/dL (32.2-35.5); Mean Platelet Volume 10.9 fL (9.4-12.3); Monocyte (Absolute #) 1.03 x10^3/uL (0.24-0.86); Monocytes % 7.5 % (4.7-12.5); Neutrophil % 78.7 % (34.0-71.1); Platelet Count 142 x10^3/uL (182-369); Red Blood Count 3.55 x10^6/uL (3.93-5.22); Red Cell Distribution Width 14.5 % (11.7-14.4); White Blood Count 13.7 x10^3/uL (3.98-10.04)
--- NOTE | 2024-11-15 11:17 | XRAY ---
Indication: Fever. Chest pain. Comparison: October 23, 2023 Portable chest demonstrates new left upper lobe patchy groundglass airspace disease without large effusion. Remaining lungs again hyperinflated with left lower lung subsegmental atelectasis/scarring and tiny right lung calcified granuloma. Heart not enlarged. Bony thorax intact again with osteopenia and mild degenerative changes.
[2024-11-15 11:27] LABS: ALBUMIN 3.6 g/dL (3.5-5.0); Calcium 10.4 mg/dL (8.4-10.2); Creatinine 1 1.9 mg/dL (0.52-1.04); EST GLOMERULAR FILTRATION RATE 25.6 ML/MIN; MAGNESIUM 1.8 mg/dL (1.6-2.3); Potassium 4.1 mmol/L (3.5-5.1); Total Protein 6.2 g/dL (6.3-8.2)
[2024-11-15 11:34] VITALS: TEMP 99.4
[2024-11-15 12:12] LABS: INFLUENZA A NEGATIVE (NEGATIVE); INFLUENZA B NEGATIVE (NEGATIVE); RESPIRATORY SYNCTIAL VIRUS NEGATIVE (NEGATIVE); SARS-CoV-2 Xpert Express NEGATIVE (NEGATIVE)
--- NOTE | 2024-11-15 12:21 | XRAY ---
Indication: Low back pain. Multiple contiguous axial images obtained through the abdomen and pelvis without contrast. Comparison: None Lung bases demonstrate scattered bibasilar subsegmental atelectasis/scarring. No infiltrate or effusion. Heart borderline enlarged with mitral valve calcifications. Small hiatal hernia. Noncontrasted stomach and bowel loops appear nonobstructed. Infraumbilical ventral hernia defect at least 7 cm wide with portion of transverse colon herniating without obstruction/incarceration. Minimal descending diverticulosis. Previous cholecystectomy. No free fluid/air. Remaining liver, pancreas, spleen, adrenal glands, kidneys, ureters, and bladder are unremarkable for noncontrast exam. Mild scattered aortoiliac calcifications without AAA. Osseous structures intact with osteopenia, mild/moderate degenerative changes throughout lumbar spine, minimal lumbar dextroscoliosis centered at L2, and mild degenerative changes both hips. Impression: 1. Infraumbilical ventral hernia with noncomplicated herniation loop of transverse colon. 2. Chronic findings including atelectasis/scarring, hiatal hernia, diverticulosis, arteriosclerotic disease, and chronic bony findings. 3. Remaining CT abdomen/pelvis without contrast exam is negative.
[2024-11-15] MEDS ORDERED: Levofloxacin 500MG/100ML D5W 500 MG/100 ML BAG IV ONE (12:31)
[2024-11-15] MEDS ORDERED: Lasix 40 MG/4 ML ONE (12:31)
[2024-11-15] MEDS: Levofloxacin 500MG/100ML D5W 500 MG/100 ML BAG IV STA (12:32)
[2024-11-15] MEDS: Lasix 40 MG/4 ML IV ONE (12:32)
[2024-11-15 13:12] VITALS: O2SAT 97
[2024-11-15 14:19] VITALS: BP 160/63; PULSE 66; RESP 18
[2024-11-15 14:59] LABS: Appearance Clear (Clear); Bacteria None Seen /HPF (None Seen); Bilirubin Negative (Negative); Blood Negative (Negative); Epithelial Cells None Seen /HPF (None Seen); Glucose, Urine Negative (Negative); Ketones Negative (Negative); Leukocyte Esterase Negative (Negative); Nitrite Negative (Negative); Ph 6.5 (4.6-8.0); Protein,Urine Dip Negative (Negative); RBC 0-2 /HPF (0-5); Specific Gravity <=1.005 (1.005-1.030); Urobilinogen 0.2 mg/dL (0.2); WBC 0-2 /HPF (0-5)
== END 2024-11-15 14:55 | disposition short-term general hospital (02) ==
LOC: ED 09:57
DX: R91.8 Other nonspecific abnormal finding of lung field (principal); D72.829 Elevated white blood cell count, unspecified; R79.89 Other specified abnormal findings of blood chemistry; R77.8 Other specified abnormalities of plasma proteins; I13.0 Hypertensive heart and chronic kidney disease with heart failure and stage 1 through stage 4 chronic kidney disease, or unspecified chronic kidney disease; N18.9 Chronic kidney disease, unspecified; I50.9 Heart failure, unspecified; R07.9 Chest pain, unspecified; R50.9 Fever, unspecified; Z79.01 Long term (current) use of anticoagulants; Z79.899 Other long term (current) drug therapy
CPT/HCPCS: 0241U; 36415; 71045; 74176; 80053; 81001; 83605; 83735; 83880; 84484; 85025; 86308; 87040; 87086; 93005; 93041; 96365; 96375; 99285; 96374; J1938; J1956